=== PATIENT | female | born 1985 | race Caucasian/White ===

== ENCOUNTER 2018-03-06 16:27 | Emergency (ER) | payer OTHER ==
[2018-03-06 16:42] VITALS: RESP 18; TEMP 98.7
[2018-03-06] MEDS ORDERED: hydrALAZINE HCL 20 MG/ML 1 ML VIAL IVP STA (16:58)
--- NOTE | 2018-03-06 16:58 | ED ---
General Adult HPI - General Chief complaint: Recheck/Abnormal Lab/Rx Stated complaint: hypertension Time Seen by Provider: 03/06/18 16:35 Source: EMS, RN notes reviewed Mode of arrival: EMS Limitations: no limitations - History of Present Illness Initial comments: This is a 32-year-old female who presents emergency Department complaining that her blood pressures been elevated and she feels generally weak. Patient is in [facility] for alcoholism. Patient states she got there one week ago. Patient states she started BuSpar yesterday and has been on Ativan regularly. Patient states she also takes trazodone every night. Patient's current complaint is generalized weakness. Patient denies any headache patient denies any numbness or focal weakness. Patient denies any lightheadedness or dizziness. Patient denies chest pain palpitations difficulty breathing first breath per patient denies abdominal pain patient denies nausea vomiting diarrhea. Patient denies taking any other drugs in what were listed earlier. Patient denies fever chills or cough - Related Data Allergies Allergy/AdvReac Type Severity Reaction Status Date / Time No Known Allergies Allergy Verified 03/06/18 16:37 Review of Systems ROS Statement: Those systems with pertinent positive or pertinent negative responses have been documented in the HPI. ROS Other: All systems not noted in ROS Statement are negative. Past Medical History Past Medical History: Hypertension History of Any Multi-Drug Resistant Organisms: None Reported Past Surgical History: Section, Ear Surgery, Tonsillectomy Past Psychological History: Anxiety Smoking Status: Current every day smoker Past Alcohol Use History: None Reported Past Drug Use History: None Reported General Exam - General Exam Comments Initial Comments: GENERAL: Patient is well-developed and well-nourished. Patient is nontoxic and well- hydrated and is in no acute distress. ENT: Neck is soft and supple. No significant lymphadenopathy is noted. Oropharynx is clear. Moist mucous membranes. Neck has full range of motion without eliciting any pain. EYES: The sclera were anicteric and conjunctiva were pink and moist. Extraocular movements were intact and pupils were equal round and reactive to light. Eyelids were unremarkable. PULMONARY: Unlabored respirations. Good breath sounds bilaterally. No audible rales rhonchi or wheezing was noted. CARDIOVASCULAR: There is a regular rate and rhythm without any murmurs gallops or rubs. ABDOMEN: Soft and nontender with normal bowel sounds. No palpable organomegaly was noted. There is no palpable pulsatile mass. SKIN: Skin is clear with no lesions or rashes and otherwise unremarkable. NEUROLOGIC: Patient is alert and oriented x3. Cranial nerves II through XII are grossly intact. Motor and sensory are also intact. Normal speech, volume and content. Patient answers all questions accurately can move all 4 extremities but is very slow in responding but starts responding immediately MUSCULOSKELETAL: Normal extremities with adequate strength and full range of motion. No lower extremity swelling or edema. No calf tenderness. LYMPHATICS: No significant lymphadenopathy is noted PSYCHIATRIC: Normal psychiatric evaluation. Normal interpersonal interactions appears functionally intact in deals appropriately with others. No signs of depression. No signs of anxiety. Limitations: no limitations Course Vital Signs 03/06/18 03/06/18 03/06/18 16:37 17:12 17:41 Temperature 98.7 F Pulse Rate 84 Respiratory 18 Rate Blood Pressure 164/105 147/88 138/71 O2 Sat by Pulse 97 Oximetry 03/06/18 03/06/18 18:10 18:40 Temperature Pulse Rate 66 67 Respiratory Rate Blood Pressure 129/91 135/85 O2 Sat by Pulse Oximetry Medical Decision Making - Medical Decision Making EKG shows normal sinus rhythm at 80 bpm CA interval is 148 QRS 92 QT interval 376 QTC is 433. Patient's EKG shows no ST segment elevation or depression or T wave abnormalities are noted. I will back into the room to reevaluate the patient she was feeling completely at her baseline her blood pressure is 135/83. Patient denies any symptoms at this time. Patient does not know why she felt so tired earlier. Patient's blood pressure slowly came down on its own in the emergency department so we did not give the patient any medications for her blood pressure. - Lab Data Result diagrams: 03/06/18 17:09 03/06/18 17:09 Lab Results 03/06/18 03/06/18 03/06/18 Range/Units 17:09 17: 17:09 WBC 5.0 (3.8-10.6) k/uL RBC 4.08 (3.80-5.40) m/uL Hgb 12.7 (11.4-16.0) gm/dL Hct 38.6 (34.0-46.0) % MCV 94.8 (80.0-100.0) fL MCH 31.2 (25.0-35.0) pg MCHC 33.0 (31.0-37.0) g/dL RDW 15.2 (11.5-15.5) % Plt Count 204 (150-450) k/uL Neutrophils % 56 % Lymphocytes % 29 % Monocytes % 8 % Eosinophils % 4 % Basophils % 1 % Neutrophils # 2.8 (1.3-7.7) k/uL Lymphocytes # 1.5 (1.0-4.8) k/uL Monocytes # 0.4 (0-1.0) k/uL Eosinophils # 0.2 (0-0.7) k/uL Basophils # 0.1 (0-0.2) k/uL Sodium 141 (137-145) mmol/L Potassium 4.1 (3.5-5.1) mmol/L Chloride 105 (98-107) mmol/L Carbon Dioxide 23 (22-30) mmol/L Anion Gap 13 mmol/L BUN 15 (7-17) mg/dL Creatinine 0.78 (0.52-1.04) mg/dL Est GFR (CKD-EPI)AfAm >90 (>60 ml/min/1.73 sqM) Est GFR (CKD-EPI)NonAf >90 (>60 ml/min/1.73 sqM) Glucose 82 (74-99) mg/dL Calcium 9.5 (8.4-10.2) mg/dL Magnesium 2.0 (1.6-2.3) mg/dL Total Bilirubin 0.4 (0.2-1.3) mg/dL AST 43 H (14-36) U/L ALT 49 (9-52) U/L Alkaline Phosphatase 63 (38-126) U/L Total Creatine Kinase 51 (30-135) U/L CK-MB (CK-2) 0.4 (0.0-2.4) ng/mL CK-MB (CK-2) Rel Index 0.8 Troponin I <0.012 (0.000-0.034) ng/mL Total Protein 6.9 (6.3-8.2) g/dL Albumin 4.2 (3.5-5.0) g/dL Urine Opiates Screen (NotDetected) Ur Oxycodone Screen (NotDetected) Urine Methadone Screen (NotDetected) Ur Propoxyphene Screen (NotDetected) Ur Barbiturates Screen (NotDetected) U Tricyclic Antidepress (NotDetected) Ur Phencyclidine Scrn (NotDetected) Ur Amphetamines Screen (NotDetected) U Methamphetamines Scrn (NotDetected) U Benzodiazepines Scrn (NotDetected) Urine Cocaine Screen (NotDetected) U Marijuana (THC) Screen (NotDetected) 03/06/18 Range/Units 17:20 WBC (3.8-10.6) k/uL RBC (3.80-5.40) m/uL Hgb (11.4-16.0) gm/dL Hct (34.0-46.0) % MCV (80.0-100.0) fL MCH (25.0-35.0) pg MCHC (31.0-37.0) g/dL RDW (11.5-15.5) % Plt Count (150-450) k/uL Neutrophils % % Lymphocytes % % Monocytes % % Eosinophils % % Basophils % % Neutrophils # (1.3-7.7) k/uL Lymphocytes # (1.0-4.8) k/uL Monocytes # (0-1.0) k/uL Eosinophils # (0-0.7) k/uL Basophils # (0-0.2) k/uL Sodium (137-145) mmol/L Potassium (3.5-5.1) mmol/L Chloride (98-107) mmol/L Carbon Dioxide (22-30) mmol/L Anion Gap mmol/L BUN (7-17) mg/dL Creatinine (0.52-1.04) mg/dL Est GFR (CKD-EPI)AfAm (>60 ml/min/1.73 sqM) Est GFR (CKD-EPI)NonAf (>60 ml/min/1.73 sqM) Glucose (74-99) mg/dL Calcium (8.4-10.2) mg/dL Magnesium (1.6-2.3) mg/dL Total Bilirubin (0.2-1.3) mg/dL AST (14-36) U/L ALT (9-52) U/L Alkaline Phosphatase (38-126) U/L Total Creatine Kinase (30-135) U/L CK-MB (CK-2) (0.0-2.4) ng/mL CK-MB (CK-2) Rel Index Troponin I (0.000-0.034) ng/mL Total Protein (6.3-8.2) g/dL Albumin (3.5-5.0) g/dL Urine Opiates Screen Not Detected (NotDetected) Ur Oxycodone Screen Not Detected (NotDetected) Urine Methadone Screen Not Detected (NotDetected) Ur Propoxyphene Screen Not Detected (NotDetected) Ur Barbiturates Screen Not Detected (NotDetected) U Tricyclic Antidepress Not Detected (NotDetected) Ur Phencyclidine Scrn Not Detected (NotDetected) Ur Amphetamines Screen Not Detected (NotDetected) U Methamphetamines Scrn Not Detected (NotDetected) U Benzodiazepines Scrn Not Detected (NotDetected) Urine Cocaine Screen Not Detected (NotDetected) U Marijuana (THC) Screen Not Detected (NotDetected) Disposition Clinical Impression: Hypertension Disposition: HOME SELF-CARE Instructions: Hypertension (ED) Additional Instructions: Patient should return to the emergency department if there is any new or worsening symptoms. Is patient prescribed a controlled substance at d/c from ED?: No Referrals: None,Stated [Primary Care Provider] - 1-2 days Time of Disposition: 18:58
[2018-03-06 17:23] LABS: Basophils # (A) 0.1 k/uL (0-0.2); Basophils % (A) 1 %; Eosinophils # (A) 0.2 k/uL (0-0.7); Eosinophils % (A) 4 %; HCT 38.6 % (34.0-46.0); HGB 12.7 gm/dL (11.4-16.0); Lymphocytes # (A) 1.5 k/uL (1.0-4.8); Lymphocytes % (A) 29 %; MCH 31.2 pg (25.0-35.0); MCV 94.8 fL (80.0-100.0); Mean Platelet Volume 7.2; Monocytes # (A) 0.4 k/uL (0-1.0); Monocytes % (A) 8 %; Neutrophils # (A) 2.8 k/uL (1.3-7.7); Neutrophils % (A) 56 %; Platelet Count 204 k/uL (150-450); RBC 4.08 m/uL (3.80-5.40); RDW 15.2 % (11.5-15.5)
[2018-03-06 17:36] LABS: ALT 49 U/L (9-52); AST 43 U/L (14-36); Albumin 4.2 g/dL (3.5-5.0); Alkaline Phosphatase 63 U/L (38-126); Anion Gap 13 mmol/L; Blood Urea Nitrogen 15 mg/dL (7-17); Calcium 9.5 mg/dL (8.4-10.2); Carbon Dioxide 23 mmol/L (22-30); Chloride 105 mmol/L (98-107); Glucose 82 mg/dL (74-99); Potassium 4.1 mmol/L (3.5-5.1); Sodium 141 mmol/L (137-145); Total Bilirubin 0.4 mg/dL (0.2-1.3); Total Protein 6.9 g/dL (6.3-8.2)
[2018-03-06 17:45] LABS: Amphetamine Screen,Urine Not Detected (NotDetected); Barbiturate Screen,Urine Not Detected (NotDetected); Benzodiazepines Screen,Urine Not Detected (NotDetected); Cocaine Screen,Urine Not Detected (NotDetected); Methadone Screen, Urine Not Detected (NotDetected); Opiate Screen,Urine Not Detected (NotDetected); Oxycodone Screen, Urine Not Detected (NotDetected); Phencyclidine Screen,Urine Not Detected (NotDetected); Tricyclic Antidepressant,Urine Not Detected (NotDetected); Urn Cannabinoid Scrn Not Detected (NotDetected)
[2018-03-06 17:46] LABS: Creatine Kinase 51 U/L (30-135)
--- NOTE | 2018-03-06 17:59 | XR ---
EXAMINATION: XR chest 2V DATE AND TIME: 03/06/2018 5:28 PM ORDERING PROVIDER: Almas Mclean MD CLINICAL INDICATION: Chest Pain TECHNIQUE: PA and lateral COMPARISON: None. DESCRIPTION: The lungs are clear. The pleural spaces are negative. The cardiac silhouette is not enlarged. The mediastinal and pleural silhouettes are unremarkable. The skeletal structures are intact without focal findings. The soft tissues are unremarkable. IMPRESSION: NO ACUTE PROCESS.
[2018-03-06 18:00] LABS: Creatine Kinase MB 0.4 ng/mL (0.0-2.4); Troponin I <0.012 ng/mL (0.000-0.034)
[2018-03-06 18:44] VITALS: BP 135/85; PULSE 67
== END 2018-03-06 19:32 | disposition home or self-care (01) ==
LOC: EC 16:27
DX: I10 Essential (primary) hypertension (principal); R53.1 Weakness; F17.200 Nicotine dependence, unspecified, uncomplicated
CPT/HCPCS: 36415; 71046; 80053; 80306; 82550; 82553; 83735; 84484; 85025; 93005; 99284

== ENCOUNTER 2020-07-24 17:06 | Inpatient (IN) | payer OTHER ==
[2020-07-24] MEDS ORDERED: SODIUM CHLORIDE 0.9% 1,000 ML IV STA (17:19)
[2020-07-24] MEDS ORDERED: SODIUM CHLORIDE 0.9% 500 ML 500 ML IV STA (17:19)
--- NOTE | 2020-07-24 17:23 | ED ---
Seizure HPI - General Chief Complaint: Seizure Stated Complaint: Possible seizure Time Seen by Provider: 07/24/20 17:06 Source: patient, EMS, RN notes reviewed Mode of arrival: EMS Limitations: no limitations - History of Present Illness Initial Comments: This is a 35-year-old female who is now on day 8 of rehab for alcohol use she states she was drinking a fifth a half of vodka every day who apparently just prior to transport here by EMS had a seizure was tonic-clonic in nature lasting approximately 2 minutes. She was unresponsive afterwards but within 5 minutes she woke up when EMS arrived. She denies any head neck or back pain she does have some pain to the right lower anterior ribs and abdominal area. She states she's had it for a while. She has gone through DTs before but denies any knowledge of any prior seizure disorder. No recent trauma. No fevers chills nausea vomiting sweats. MD Complaint: seizure - Related Data Allergies Allergy/AdvReac Type Severity Reaction Status Date / Time No Known Allergies Allergy Verified 07/24/20 17:16 Review of Systems ROS Statement: Those systems with pertinent positive or pertinent negative responses have been documented in the HPI. ROS Other: All systems not noted in ROS Statement are negative. Past Medical History Past Medical History: Hypertension, Liver Disease Additional Past Medical History / Comment(s): Pancreatitis History of Any Multi-Drug Resistant Organisms: None Reported Past Surgical History: Section, Ear Surgery, Tonsillectomy Past Psychological History: Anxiety Smoking Status: Current every day smoker Past Alcohol Use History: Abuse, Heavy Past Drug Use History: None Reported General Exam - General Exam Comments Initial Comments: This is a well-developed sec appearing female who is awake alert oriented 3 Limitations: no limitations General appearance: alert, in no apparent distress Head exam: Present: atraumatic, normocephalic, normal inspection Eye exam: Present: normal appearance, PERRL, EOMI. Absent: scleral icterus, conjunctival injection, periorbital swelling ENT exam: Present: normal exam, mucous membranes moist Neck exam: Present: normal inspection, full ROM, other. Absent: tenderness, meningismus, lymphadenopathy Respiratory exam: Present: normal lung sounds bilaterally, chest wall tenderness (No stridor JVD or bruits over the left anterior inferior chest wall no step-off crepitation no bruising seen). Absent: respiratory distress, wheezes, rales, rhonchi, stridor Cardiovascular Exam: Present: regular rate, normal rhythm, normal heart sounds. Absent: systolic murmur, diastolic murmur, rubs, gallop, clicks GI/Abdominal exam: Present: soft, tenderness (Mild tenderness below the left costochondral margin no guarding rebound masses or bruits), normal bowel sounds. Absent: distended, guarding, rebound, rigid Extremities exam: Present: normal inspection, full ROM, normal capillary refill. Absent: tenderness, pedal edema, joint swelling, calf tenderness Back exam: Present: normal inspection Neurological exam: Present: alert, oriented X3, CN II-XII intact Psychiatric exam: Present: normal affect, normal mood Skin exam: Present: warm, dry, intact, normal color. Absent: rash Course Vital Signs 07/24/20 17:10 Temperature 98.1 F Pulse Rate 71 Respiratory 18 Rate Blood Pressure 135/98 O2 Sat by Pulse 98 Oximetry Medical Decision Making - Medical Decision Making Patient remains awake and alert. She had evidence of a seizure likely alcohol withdrawal though it is a week since he last had alcohol. She will be admitted the case was discussed with Dr. Vance - Lab Data Result diagrams: 07/24/20 17:39 07/24/20 17:39 Lab Results 07/24/20 07/24/20 Range/Units 17:39 17:39 WBC 4.5 (3.8-10.6) k/uL RBC 3.24 L (3.80-5.40) m/uL Hgb 11.9 (11.4-16.0) gm/dL Hct 35.4 (34.0-46.0) % MCV 109.2 H (80.0-100.0) fL MCH 36.7 H (25.0-35.0) pg MCHC 33.6 (31.0-37.0) g/dL RDW 13.7 (11.5-15.5) % Plt Count 187 (150-450) k/uL Neutrophils % 63 % Lymphocytes % 24 % Monocytes % 9 % Eosinophils % 2 % Basophils % 1 % Neutrophils # 2.8 (1.3-7.7) k/uL Lymphocytes # 1.1 (1.0-4.8) k/uL Monocytes # 0.4 (0-1.0) k/uL Eosinophils # 0.1 (0-0.7) k/uL Basophils # 0.0 (0-0.2) k/uL Macrocytosis Marked A Sodium 136 L (137-145) mmol/L Potassium 3.2 L (3.5-5.1) mmol/L Chloride 100 (98-107) mmol/L Carbon Dioxide 29 (22-30) mmol/L Anion Gap 7 mmol/L BUN 10 (7-17) mg/dL Creatinine 0.57 (0.52-1.04) mg/dL Est GFR (CKD-EPI)AfAm >90 (>60 ml/min/1.73 sqM) Est GFR (CKD-EPI)NonAf >90 (>60 ml/min/1.73 sqM) Glucose 113 H (74-99) mg/dL Calcium 9.8 (8.4-10.2) mg/dL Magnesium 1.8 (1.6-2.3) mg/dL Total Bilirubin 1.6 H (0.2-1.3) mg/dL AST 84 H (14-36) U/L ALT 43 H (4-34) U/L Alkaline Phosphatase 230 H (38-126) U/L Creatine Kinase 58 (30-135) U/L Total Protein 7.0 (6.3-8.2) g/dL Albumin 3.9 (3.5-5.0) g/dL Lipase 667 H (23-300) U/L Serum Alcohol <10 mg/dL - Radiology Data Radiology results: report reviewed (I did review the imaging and report no acute findings.), image reviewed Disposition Clinical Impression: New onset seizure, Alcoholism, Hypokalemia Disposition: ADMITTED IP TO THIS [facility] Condition: Fair Referrals: Alexa Morin MD [Primary Care Provider] - 1-2 days
[2020-07-24 17:48] LABS: Basophils % (A) 1 %; Eosinophils # (A) 0.1 k/uL (0-0.7); Eosinophils % (A) 2 %; HCT 35.4 % (34.0-46.0); HGB 11.9 gm/dL (11.4-16.0); Lymphocytes # (A) 1.1 k/uL (1.0-4.8); Lymphocytes % (A) 24 %; MCH 36.7 pg (25.0-35.0); MCHC 33.6 g/dL (31.0-37.0); MCV 109.2 fL (80.0-100.0); Macrocytosis Marked; Mean Platelet Volume 8.3; Monocytes # (A) 0.4 k/uL (0-1.0); Monocytes % (A) 9 %; Neutrophils # (A) 2.8 k/uL (1.3-7.7); Neutrophils % (A) 63 %; Platelet Count 187 k/uL (150-450); RBC 3.24 m/uL (3.80-5.40); RDW 13.7 % (11.5-15.5); WBC 4.5 k/uL (3.8-10.6)
[2020-07-24 17:57] LABS: ALT 43 U/L (4-34); AST 84 U/L (14-36); African American GFR (CKD) >90 (>60 ml/min/1.73 sqM); Albumin 3.9 g/dL (3.5-5.0); Alcohol <10 mg/dL; Alkaline Phosphatase 230 U/L (38-126); Anion Gap 7 mmol/L; Blood Urea Nitrogen 10 mg/dL (7-17); Calcium 9.8 mg/dL (8.4-10.2); Carbon Dioxide 29 mmol/L (22-30); Chloride 100 mmol/L (98-107); Creatine Kinase 58 U/L (30-135); Glucose 113 mg/dL (74-99); Magnesium 1.8 mg/dL (1.6-2.3); Non-African American GFR(CKD) >90 (>60 ml/min/1.73 sqM); Potassium 3.2 mmol/L (3.5-5.1); Sodium 136 mmol/L (137-145); Total Bilirubin 1.6 mg/dL (0.2-1.3)
--- NOTE | 2020-07-24 18:03 | CT ---
EXAMINATION TYPE: CT brain wo con DATE OF EXAM: 07/24/2020 COMPARISON: None HISTORY: Seizure activity. CT DLP: 1082.4 mGycm Automated exposure control for dose reduction was used. Images are obtained of the brain without contrast. Ventricles and sulci appear normal. There is no mass effect nor midline shift. There is no sign of in tracranial hemorrhage. The calvarium is intact. There is no evidence of cerebral edema. There is norm al aeration of the mastoid sinuses. IMPRESSION: Negative unenhanced head CT scan.
--- NOTE | 2020-07-24 18:15 | XR ---
EXAMINATION TYPE: XR ribs LT w pa chest xray DATE OF EXAM: 07/24/2020 COMPARISON: Chest x-ray 02/26/2018 HISTORY: Left rib pain TECHNIQUE: 5 views FINDINGS: Heart and mediastinum are normal. Lungs are clear of infiltrate. There is no pleural effusi on or pneumothorax. I see no evidence of a rib fracture. Left shoulder is intact. IMPRESSION: Normal chest. Normal left ribs. No change.
[2020-07-24] MEDS ORDERED: KETOROLAC 15 MG/ML 1 ML VIAL IVP STA (18:27)
[2020-07-24] MEDS ORDERED: NALOXONE 0.4 MG/ML 1 ML VIAL IV PRN (19:12)
[2020-07-24] MEDS ORDERED: THIAMINE 100 MG/ML 2 ML VIAL IM STA (19:17)
[2020-07-24] MEDS ORDERED: LORazepam 2 MG/ML INJ IV PRN ×2 (19:17)
[2020-07-24] MEDS: 0.9% NACL WITH KCL 20 MEQ/L 1,000 ML IV SCH (19:45)
[2020-07-24] MEDS: THIAMINE 100 MG TAB PO SCH (19:46)
[2020-07-24] MEDS: LORazepam 2 MG/ML INJ IV PRN ×2 (20:50→23:07)
[2020-07-25] MEDS: LORazepam 2 MG/ML INJ IV PRN (03:03)
[2020-07-25] MEDS: THIAMINE 100 MG TAB PO SCH ×2 (06:17→14:48)
[2020-07-25 08:07] VITALS: RESP 16
[2020-07-25 08:44] LABS: HCG,Qualitative Serum Not Detected
[2020-07-25 08:47] LABS: ALT 31 U/L (4-34); AST 61 U/L (14-36); African American GFR (CKD) >90 (>60 ml/min/1.73 sqM); Albumin 3.1 g/dL (3.5-5.0); Alkaline Phosphatase 171 U/L (38-126); Anion Gap 5 mmol/L; Blood Urea Nitrogen 6 mg/dL (7-17); Calcium 8.3 mg/dL (8.4-10.2); Carbon Dioxide 29 mmol/L (22-30); Chloride 103 mmol/L (98-107); Glucose 114 mg/dL (74-99); Non-African American GFR(CKD) >90 (>60 ml/min/1.73 sqM); Potassium 3.3 mmol/L (3.5-5.1); Sodium 137 mmol/L (137-145); Total Bilirubin 1.3 mg/dL (0.2-1.3); Total Protein 5.9 g/dL (6.3-8.2)
--- NOTE | 2020-07-25 10:12 | US ---
EXAMINATION TYPE: US carotid duplex BILAT DATE OF EXAM: 07/25/2020 COMPARISON: NONE CLINICAL HISTORY: New-onset seizure. EXAM MEASUREMENTS: RIGHT: Peak Systolic Velocity (PSV) cm/sec ----- Right CCA: 68.2 ----- Right ICA: 63.8 ----- Right ECA: 91.5 ICA/CCA ratio: 0.9 RIGHT: End Diastole cm/sec ----- Right CCA: 18.8 ----- Right ICA: 21.7 ----- Right ECA: 28.9 LEFT: Peak Systolic Velocity (PSV) cm/sec ----- Left CCA: 63.6 ----- Left ICA: 66.9 ----- Left ECA: 75.7 ICA/CCA ratio: 1.1 LEFT: End Diastole cm/sec ----- Left CCA: 19.7 ----- Left ICA: 37.3 ----- Left ECA: 20.8 VERTEBRALS (direction of flow): Right Vertebral: Antegrade Left Vertebral: Antegrade Rhythm: Normal Minimal amount of plaque visualized bilaterally. No elevated velocities, no significant stenosis. IMPRESSION: No hemodynamically significant stenosis bilaterally. Any stenosis that may be present is less than 50%. Criteria for Assigning % of Stenosis / Diameter reduction (Estimation based on the indirect measurements of the internal carotid artery velocities (ICA PSV). 1. Normal (no stenosis)=ICA PSV < 125 cm/s: ratio < 2.0: ICA EDV<40 cm/s. 2. Less than 50% stenosis=ICA PSV < 125 cm/s: ratio < 2.0: ICA EDV<40 cm/s. 3. 50 to 69% stenosis=ICA PSV of 125 to 230 cm/s: ration 2.0 ? 4.0: ICA EDV 40-100 cm/s. 4. Greater than 70% stenosis to near occlusion= ICA PSV > 230 cm/s: ratio > 4.0: ICA EDV > 100 cm/s. 5. Near occlusion= ICA PSV velocities may be low or undetectable: variable ratio and ICA EDV. 6. Total occlusion=unable to detect flow.
[2020-07-25] MEDS ORDERED: KETOROLAC 15 MG/ML 1 ML VIAL IVP PRN (12:36)
--- NOTE | 2020-07-25 12:39 | P.CNNES ---
History of Present Illness Consult date: 07/25/20 Requesting physician: Michoacano Fleming Reason for Consult: New onset seizure, history of alcoholism History of Present Illness: Patient is a 35-year-old female arrived to the hospital yesterday at 5 PM by ambulance after having a seizure at the rehab facility. Patient has long- standing history of heavy alcoholism as mentioned below. Patient went to alcohol rehab about 8 days ago. Patient states that yesterday she was walking in the hallway, when her whole body felt numb and she sat down and then she does not remember what happened and woke up in the ambulance. There was no tongue bite, or loss of control of urine. According to EMS report, when they arrived, patient was sitting in the hallway. Staff has mentioned that patient had a seizure, a full body shaking lasting for about 1-2 minutes. When EMS arrived patient is alert and oriented to person place time and a vent. Patient however does not remember that conversation. There is no history of seizures. Her last drink was reported about 8 days prior. She did not have any nausea vomiting shortness of breath and difficulty breathing. Her blood pressure at the scene was 134/72 pulse 80 respiration 18 and blood glucose 128. Patient was brought to the hospital. Vital signs on arrival was blood pressure 135/98, pulse rate [address] head is normal. Chest x-ray showed no acute process. EKG shows normal sinus rhythm. Nonspecific ST-T wave abnormality. Patient's blood test shows normal CBC with elevated MCV 109.2. Sodium 136, potassium 3.2, normal renal functions. AST is 84, ALT 43. CPK 58. Blood alcohol level was <10.0 Patient takes trazodone 150 mg at bedtime, BuSpar 10 mg 3 times a day, chlorpheniramine 4 mg every 4 hours when necessary and lisinopril. Patient states that she drinks a fifth to a fifth and a 1/2 of vodka per day for last 5 years. Prior to that she used to drink half to 1 pint of vodka for [facility] 5-10 years. Review of Systems Denies any chest pain shortness of breath wheezing or cough. Denies any double vision, loss of vision, hoarseness, sore throat or dysphagia. Patient has poor dentition. Denies any abdominal pain, nausea vomiting diarrhea. All other rev iew of systems unremarkable. Past Medical History Past Medical History: Hypertension, Liver Disease Additional Past Medical History / Comment(s): Pancreatitis History of Any Multi-Drug Resistant Organisms: None Reported Past Surgical History: Section, Ear Surgery, Tonsillectomy Past Psychological History: Anxiety Smoking Status: Current every day smoker Past Alcohol Use History: Abuse, Heavy Past Drug Use History: None Reported Medications and Allergies Home Medications Medication Instructions Recorded Confirmed Type Chlorpheniramine Maleate 4 mg PO Q4H PRN MDD 4 tab/24hr 07/24/20 07/24/20 History [Chlor-Trimeton] Hyoscyamine Sulfate [Levsin-Sl] 0.125 mg SL QID PRN 07/24/20 07/24/20 History Ondansetron HCl [Zofran] 8 mg PO Q6H PRN 07/24/20 07/24/20 History Trimethobenzamide [Tigan] 300 mg PO Q6H PRN 07/24/20 07/24/20 History Zofran 4mg/2ml Injection 1 dose IM Q6H PRN 07/24/20 07/24/20 History busPIRone HCl [Buspar] 10 mg PO TID PRN 07/24/20 07/24/20 History lisinopriL 20 mg PO DIRECTED 07/24/20 History traZODone HCL 150 mg PO HS 07/24/20 07/24/20 History Ibuprofen [Motrin] 600 mg PO Q6H PRN 3 Days #12 tab 07/25/20 Rx Lidocaine 5% Patch [Lidoderm 5% 1 patch TOPICAL DAILY #7 patch 07/25/20 Rx Patch] Pantoprazole [Protonix] 40 mg PO AC-BRKFST #10 tablet.dr 07/25/20 Rx Thiamine [Vitamin B-1] 100 mg PO BID-W/MEALS #30 tab 07/25/20 Rx Allergies Allergy/AdvReac Type Severity Reaction Status Date / Time No Known Allergies Allergy Verified 07/24/20 19:44 Physical Examination - Vital Signs Vital Signs: Vital Signs Temp Pulse Pulse Resp BP BP Pulse Ox 07/25/20 08:04 98.8 F 66 16 152/92 99 07/25/20 04:00 98.3 F 67 18 152/92 100 07/24/20 23:36 98.6 F 71 18 142/95 100 07/24/20 22:34 83 18 141/99 98 07/24/20 19:32 144/110 07/24/20 19:06 64 18 171/112 100 07/24/20 17:10 98.1 F 71 18 135/98 98 Intake and Output 07/24/20 07/25/20 07/25/20 22:59 06:59 14:59 Intake Total 450 450 280 Balance 450 450 280 Intake: Oral 450 450 280 Other: Voiding Method Toilet Toilet # Voids 1 Weight 59.874 kg 61.1 kg On examination patient is a young female, appears slightly older than her stated age. She is alert and awake fully oriented. Her speech and language functions are normal. Attention, concentration and fund of knowledge is adequate. On cranial nerve examination pupils are round and reactive to light, visual marquez are full on confrontation, extraocular muscles are intact with no nystagmus. Face is symmetric, tongue protrudes the midline. Palatal elevation sensation normal. Hearing and shoulder shrug normal. Patient has very poor dentition. Facial sensations normal. On muscle strength testing there is no pronator drift and the strength appears normal in the arms and legs reflexes are 1+ and plantars are downgoing. Sensory touch is equal. No ataxia for [id number] testing. Tone and bulk of muscles normal. On general examination, there is no carotid bruit, S1 and S2 audible, abdomen soft nontender, chest is clear. Results - Laboratory Findings CBC and BMP: 07/24/20 17:39 07/25/20 08:02 Abnormal Lab Findings: Abnormal Labs 07/24/20 07/24/20 07/25/20 17:39 17:39 08:02 RBC 3.24 L MCV 109.2 H MCH 36.7 H Macrocytosis Marked A Sodium 136 L Potassium 3.2 L 3.3 L BUN 6 L Glucose 113 H 114 H Calcium 8.3 L Total Bilirubin 1.6 H AST 84 H 61 H ALT 43 H Alkaline Phosphatase 230 H 171 H Total Protein 5.9 L Albumin 3.1 L Lipase 667 H Assessment and Plan Assessment: * New onset seizure, likely due to alcohol withdrawal. Patient has long- standing history of alcoholism, undergoing rehabilitation with last drink a days ago. * Chronic alcoholism * Macrocytosis due to above. Plan: * Patient's seizure is likely related to alcohol withdrawal. * EEG was performed today, and is normal. No epileptiform activity was seen. Slightly excessive low voltage fast frequency beta suggestive of medication effect. * No indication for antiepileptic medication, as the seizure was likely provoked due to alcohol withdrawal. * Patient was informed of [place] state law of no driving unless seizure free for 6 months, climbing ladders, operating dangerous machinery or unsupervised swimming. * Neurologically clear for discharge.
[2020-07-25] MEDS ORDERED: PANTOPRAZOLE 40 MG TABLET PO SCH (12:45)
[2020-07-25] MEDS ORDERED: LIDOCAINE 5% PATCH TOPICAL SCH (12:45)
[2020-07-25] MEDS ORDERED: ENOXAPARIN 40 MG/0.4 ML SYRINGE SQ SCH (12:45)
[2020-07-25 12:58] VITALS: BP 136/96; PULSE 67; TEMP 97.8
[2020-07-25] MEDS ORDERED: POTASSIUM CHLORIDE ER 20 MEQ TAB.ER PO STA (14:39)
--- NOTE | 2020-07-25 14:42 | P.HPIM ---
History of Present Illness Consider this note as combined H&P and discharge summary Diagnoses: Alcohol withdrawal seizure Alcohol abuse undergoing it looks at [facility]. No signs and symptoms of alcohol withdrawal delirium tremens left chest pain trauma with pain and tenderness. Rib x-rays show no fractures. Conservative management Nicotine dependence. She smokes about half pack per day, patient consult and she agrees to quit. She agrees to the nicotine patch Hypertension Anxiety, not an active issue Hospital course:. The patient is a pleasant 35 years old female with multiple medical problems including hypertension, alcohol abuse and cigarette smoker. Her PCP is documented Dr. Liu. She was at [facility] for the last 8-9 days for detox from her alcohol problem. Yesterday she was walking in the hallway when she collapsed and had a seizure that lasted for 2 minutes as she's been told, without urine or bowel incontinence and without tongue biting. Patient denies history of seizure or she's not on any antiseizure medication however she had local withdrawal seizures before. Currently patient is fully awake and oriented to time place and person, she looks, and understandable. Is any physical symptoms except for chest pain. Patient has left Lower chest pain and tenderness with increased with deep inspiration and coughing from her fall. Vitals looks stable. Labs looked unremarkable including CBC, her potassium is slightly low at 3.3 then replaced, liver enzymes slightly elevated improvement and coming back to normal gradually. HCG serum is negative. And symmetrical level less than 10. Chest x-ray showing no infiltrate no pleural effusion or pneumothorax. No evidence of rib fracture. Patient has been evaluated by neurologist who found her to have alcohol withdrawal seizure, no need for any antiseizure medication and he cleared her for discharge. Also informed her with imaging the low not to drive for 6 months or climb ladders or operating dangerous machinery or unsupervised cerumen Problems and management plan were discussed with the patient and he verbalized understanding and acceptance Patient was found stable and can be discharged home however he needs follow-up as an outpatient. Patient was instructed to follow up with PCP Dr. Liu within one week and patient agrees. Also patient agrees to go to [facility] today Gen: patient is a AAOx3, no distress CVS: S1-S2, RRR, no murmur Lungs: B/L CTA, no wheezing. Left lower lobe chest wall tenderness Abdomen: soft, no distention, no tenderness, positive bowel sounds Extremity: no leg edema or induration Time spent more than 35 minutes Past Medical History Past Medical History: Hypertension, Liver Disease Additional Past Medical History / Comment(s): Pancreatitis History of Any Multi-Drug Resistant Organisms: None Reported Past Surgical History: Section, Ear Surgery, Tonsillectomy Past Psychological History: Anxiety Smoking Status: Current every day smoker Past Alcohol Use History: Abuse, Heavy Past Drug Use History: None Reported Medications and Allergies Home Medications Medication Instructions Recorded Confirmed Type Chlorpheniramine Maleate 4 mg PO Q4H PRN MDD 4 tab/24hr 07/24/20 07/24/20 History [Chlor-Trimeton] Hyoscyamine Sulfate [Levsin-Sl] 0.125 mg SL QID PRN 07/24/20 07/24/20 History Ondansetron HCl [Zofran] 8 mg PO Q6H PRN 07/24/20 07/24/20 History Trimethobenzamide [Tigan] 300 mg PO Q6H PRN 07/24/20 07/24/20 History Zofran 4mg/2ml Injection 1 dose IM Q6H PRN 07/24/20 07/24/20 History busPIRone HCl [Buspar] 10 mg PO TID PRN 07/24/20 07/24/20 History lisinopriL 20 mg PO DIRECTED 07/24/20 History traZODone HCL 150 mg PO HS 07/24/20 07/24/20 History Ibuprofen [Motrin] 600 mg PO Q6H PRN 3 Days #12 tab 07/25/20 Rx Lidocaine 5% Patch [Lidoderm 5% 1 patch TOPICAL DAILY #7 patch 07/25/20 Rx Patch] Pantoprazole [Protonix] 40 mg PO AC-BRKFST #10 tablet. 07/25/20 Rx Thiamine [Vitamin B-1] 100 mg PO BID-W/MEALS #30 tab 07/25/20 Rx Allergies Allergy/AdvReac Type Severity Reaction Status Date / Time No Known Allergies Allergy Verified 07/24/20 19:44 Physical Exam Vitals: Vital Signs Temp Pulse Pulse Resp BP BP Pulse Ox 07/25/20 08:04 98.8 F 66 16 152/92 99 07/25/20 04:00 98.3 F 67 18 152/92 100 07/24/20 23:36 98.6 F 71 18 142/95 100 07/24/20 22:34 83 18 141/99 98 07/24/20 19:32 144/110 07/24/20 19:06 64 18 171/112 100 07/24/20 17:10 98.1 F 71 18 135/98 98 Intake and Output 07/24/20 07/25/20 07/25/20 22:59 06:59 14:59 Intake Total 450 450 880 Balance 450 450 880 Intake: Intake, IV Titration 600 Amount 0.9% NaCl with KCl 20 Meq 600 /l 1,000 ml @ 50 mls/hr IV .Q20H TRAVIS Rx#: [id number] Oral 450 450 280 Other: Voiding Method Toilet Toilet # Voids 1 Weight 59.874 kg 61.1 kg Results CBC & Chem 7: 07/24/20 17:39 07/25/20 08:02 Labs: Abnormal Lab Results - Last 24 Hours (Table) 07/24/20 07/24/20 07/25/20 Range/Units 17:39 17:39 08:02 RBC 3.24 L (3.80-5.40) m/uL MCV 109.2 H (80.0-100.0) fL MCH 36.7 H (25.0-35.0) pg Macrocytosis Marked A Sodium 136 L (137-145) mmol/L Potassium 3.2 L 3.3 L (3.5-5.1) mmol/L BUN 6 L (7-17) mg/dL Glucose 113 H 114 H (74-99) mg/dL Calcium 8.3 L (8.4-10.2) mg/dL Total Bilirubin 1.6 H (0.2-1.3) mg/dL AST 84 H 61 H (14-36) U/L ALT 43 H (4-34) U/L Alkaline Phosphatase 230 H 171 H (38-126) U/L Total Protein 5.9 L (6.3-8.2) g/dL Albumin 3.1 L (3.5-5.0) g/dL Lipase 667 H (23-300) U/L
--- NOTE | 2020-07-25 14:47 | EEG ---
ELECTROENCEPHALOGRAM REPORT DATE OF SERVICE: 07/25/2020. PREAMBLE: This is a 35-year-old female with new onset seizure. Patient has history of alcoholism. EEG FINDINGS: This is a 21 channel, routine EEG recording in a patient utilizing 10-20 international system with referential and bipolar montages. The background consists of well- developed, moderately well regulated, mixed frequencies of low-voltage, fast frequency beta, with some alpha activity. Background seems to be reactive to eye opening and closing. Continuous artifact was seen at O2 electrode. Photic stimulation was not performed. Hyperventilation was not done. Some drowsiness was seen with presence of bilaterally symmetric theta frequency rhythm. Deeper stages of sleep was not seen. No focal or generalized epileptiform activity was seen. IMPRESSION: Minimally abnormal EEG due to presence of excessive low-voltage, fast frequency beta activity, which is suggestive of medication effect. Otherwise, the EEG was normal with no focal slowing or any interictal epileptiform activity. MMNBAL / IJN: [id number] / JAMAAL
[2020-07-25] MEDS: 0.9% NACL WITH KCL 20 MEQ/L 1,000 ML IV SCH (14:49)
== END 2020-07-25 16:04 | DRG 897 ==
LOC: EC 17:06 → 3SCARD 19:16
PROVIDERS: ADMIT Internal Medicine; ATTEND Internal Medicine
DX: F10.239 Alcohol dependence with withdrawal, unspecified (principal); D75.89 Other specified diseases of blood and blood-forming organs; E87.6 Hypokalemia; F17.210 Nicotine dependence, cigarettes, uncomplicated; F41.9 Anxiety disorder, unspecified; I10 Essential (primary) hypertension; R56.9 Unspecified convulsions; Z79.899 Other long term (current) drug therapy; R07.89 Other chest pain; K08.89 Other specified disorders of teeth and supporting structures
CPT/HCPCS: 36415; 70450; 80053; 80320; 82550; 83690; 83735; 84703; 85025; 93005; 93880; 95816; 96361; 96365; 96366; 96372; 96375; 99285

== ENCOUNTER 2023-06-07 10:16 | Emergency (ER) | payer OTHER ==
[2023-06-07] MEDS ORDERED: SODIUM CHLORIDE 0.9% 2,000 ML IV ONE (10:36)
[2023-06-07 11:28] LABS: Anisocytosis Moderate; Basophils # (A) 0.1 k/uL (0-0.2); Basophils % (A) 1 %; Eosinophils # (A) 0.3 k/uL (0-0.7); Eosinophils % (A) 6 %; HCT 38.5 % (34.0-46.0); HGB 12.2 gm/dL (11.4-16.0); Hypochromasia Slight; Lymphocytes % (A) 38 %; MCH 27.2 pg (25.0-35.0); MCHC 31.7 g/dL (31.0-37.0); MCV 85.9 fL (80.0-100.0); Mean Platelet Volume 8.6; Monocytes # (A) 0.3 k/uL (0-1.0); Monocytes % (A) 5 %; Neutrophils # (A) 2.4 k/uL (1.3-7.7); Neutrophils % (A) 47 %; Platelet Count 213 k/uL (150-450); RBC 4.48 m/uL (3.80-5.40); RDW 20.5 % (11.5-15.5); WBC 5.1 k/uL (3.8-10.6)
[2023-06-07 11:42] LABS: ALT 117 U/L (4-34); AST 186 U/L (14-36); African American GFR (CKD) >90 (>60 ml/min/1.73 sqM); Albumin 4.5 g/dL (3.5-5.0); Alkaline Phosphatase 107 U/L (38-126); Blood Urea Nitrogen 7 mg/dL (7-17); Calcium 8.8 mg/dL (8.4-10.2); Carbon Dioxide 23 mmol/L (22-30); Glucose 68 mg/dL (74-99); Lipase 156 U/L (23-300); Non-African American GFR(CKD) >90 (>60 ml/min/1.73 sqM); Total Bilirubin 0.5 mg/dL (0.2-1.3); Total Protein 7.9 g/dL (6.3-8.2)
[2023-06-07 11:55] LABS: Anion Gap 13 mmol/L; Chloride 107 mmol/L (98-107); Sodium 143 mmol/L (137-145)
[2023-06-07 13:28] VITALS: PULSE 112
--- NOTE | 2023-06-07 13:30 | ED ---
Alcohol HPI - General Chief Complaint: Alcohol Stated Complaint: ETOH Time Seen by Provider: 06/07/23 10:18 Source: patient, EMS, RN notes reviewed Mode of arrival: EMS - History of Present Illness Initial Comments: 38-year-old female presents emergency Department from [facility] via EMS for alcohol intoxication. Patient had blood alcohol 225. They stated that she was too intoxicated. Patient states she wants to go back to rehab she is been trying to get sober. Patient states she drinks one to 2 fifths daily. Patient states she only drank 1/5 of alcohol today. - Related Data Home Medications Medication Instructions Recorded Confirmed Chlorpheniramine Maleate 4 mg PO Q4H PRN MDD 4 tab/24hr 07/24/20 07/24/20 [Chlor-Trimeton] Hyoscyamine Sulfate [Levsin-Sl] 0.125 mg SL QID PRN 07/24/20 07/24/20 Trimethobenzamide [Tigan] 300 mg PO Q6H PRN 07/24/20 07/24/20 Zofran 4mg/2ml Injection 1 dose IM Q6H PRN 07/24/20 07/24/20 busPIRone HCl [Buspar] 10 mg PO TID PRN 07/24/20 07/24/20 lisinopriL 20 mg PO DIRECTED 07/24/20 ondansetron HCL [Zofran] 8 mg PO Q6H PRN 07/24/20 07/24/20 traZODone HCL 150 mg PO HS 07/24/20 07/24/20 Previous Rx's Medication Instructions Recorded Ibuprofen [Motrin] 600 mg PO Q6H PRN 3 Days #12 tab 07/25/20 Lidocaine 5% Patch [Lidoderm 5% 1 patch TOPICAL DAILY #7 patch 07/25/20 Patch] Pantoprazole [Protonix] 40 mg PO AC-BRKFST #10 tablet. 07/25/20 Thiamine [Vitamin B-1] 100 mg PO BID-W/MEALS #30 tab 07/25/20 Allergies Allergy/AdvReac Type Severity Reaction Status Date / Time No Known Allergies Allergy Verified 07/24/20 19:44 Review of Systems ROS Statement: Those systems with pertinent positive or pertinent negative responses have been documented in the HPI. ROS Other: All systems not noted in ROS Statement are negative. Past Medical History Past Medical History: CVA/TIA, Hypertension, Liver Disease, Myocardial Infarction ([place]) Additional Past Medical History / Comment(s): Pancreatitis. History of Any Multi-Drug Resistant Organisms: None Reported Past Surgical History: Section, Ear Surgery, Tonsillectomy Additional Past Surgical History / Comment(s): Open heart surgery, valve repair, turmor replaced from heart Past Psychological History: Anxiety Smoking Status: Current every day smoker Past Alcohol Use History: Abuse, Heavy Past Drug Use History: None Reported General Exam Limitations: no limitations General appearance: alert, in no apparent distress Head exam: Present: atraumatic, normocephalic, normal inspection Eye exam: Present: normal appearance, PERRL, EOMI. Absent: scleral icterus, conjunctival injection, periorbital swelling ENT exam: Present: normal exam, normal oropharynx, mucous membranes moist Neck exam: Present: normal inspection, full ROM. Absent: tenderness, meningismus, lymphadenopathy Respiratory exam: Present: normal lung sounds bilaterally. Absent: respiratory distress, wheezes, rales, rhonchi, stridor Cardiovascular Exam: Present: regular rate, normal rhythm, normal heart sounds. Absent: systolic murmur, diastolic murmur, rubs, gallop, clicks GI/Abdominal exam: Present: soft, normal bowel sounds. Absent: distended, tenderness, guarding, rebound, rigid Neurological exam: Present: alert Skin exam: Present: warm, dry, intact, normal color. Absent: rash Course Vital Signs 06/07/23 06/07/23 10:17 13:26 Temperature 97.8 F Pulse Rate 111 H 112 H Respiratory 18 16 Rate Blood Pressure 118/94 O2 Sat by Pulse 97 97 Oximetry Medical Decision Making - Medical Decision Making Was pt. sent in by a medical professional or institution (, PA, BATTERY PLATE ASSEMBLER, urgent care, hospital, or jail...) When possible be specific @ -[facility] Did you speak to anyone other than the patient for history (EMS, parent, family, police, friend...)? What history was obtained from this source @ -No Did you review nursing and triage notes (agree or disagree)? Why? @ -I reviewed and agree with nursing and triage notes Were old charts reviewed (outside hosp., previous admission, EMS record, old EKG, old radiological studies, urgent care reports/EKG's, jail records)? Report findings @ -No old charts were reviewed Differential Diagnosis (chest pain, altered mental status, abdominal pain women, abdominal pain men, vaginal bleeding, weakness, fever, dyspnea, syncope, headache, dizziness, GI bleed, back pain, seizure, CVA, palpatations, mental health, musculoskeletal)? @ -Alcohol intoxication, alcohol abuse EKG interpreted by me (3pts min.). @ -As above X-rays interpreted by me (1pt min.). @ -None done CT interpreted by me (1pt min.). @ -None done U/S interpreted by me (1pt. min.). @ -None done What testing was considered but not performed or refused? (CT, X-rays, U/S, labs)? Why? @ -None What meds were considered but not given or refused? Why? @ -None Did you discuss the management of the patient with other professionals (professionals i.e. , PA, BATTERY PLATE ASSEMBLER, lab, RT, psych nurse, sexual assault social worker, financial economist, teacher, complaint evaluation officer, hospice case manager)? Give summary @ -No Was smoking cessation discussed for >3mins.? @ -No Was critical care preformed (if so, how long)? @ -No Were there social determinants of health that impacted care today? How? (Homelessness, low income, unemployed, alcoholism, drug addiction, transportation, low edu. Level, literacy, decrease access to med. care, retirement, rehab)? @ -No Was there de-escalation of care discussed even if they declined (Discuss DNR or withdrawal of care, Hospice)? DNR status @ -No What co-morbidities impacted this encounter? (DM, HTN, Smoking, COPD, CAD, Cancer, CVA, ARF, Chemo, Hep., AIDS, mental health diagnosis, sleep apnea, morbid obesity)? @ -Alcohol abuse Was patient admitted / discharged? Hospital course, mention meds given and route, prescriptions, significant lab abnormalities, going to OR and other pe rtinent info. @ -Discharged patient sent back to [facility] for alcohol rehab. Undiagnosed new problem with uncertain prognosis? @ -No Drug Therapy requiring intensive monitoring for toxicity (Heparin, Nitro, Insulin, Cardizem)? @ -No Were any procedures done? @ -No Diagnosis/symptom? @ -Alcohol intoxication Acute, or Chronic, or Acute on Chronic? @ -Acute Uncomplicated (without systemic symptoms) or Complicated (systemic symptoms)? @ -Uncomplicated Side effects of treatment? @ -No Exacerbation, Progression, or Severe Exacerbation? @ -No Poses a threat to life or bodily function? How? (Chest pain, [place], [place], pneumonia, PE, COPD, DKA, ARF, appy, cholecystitis, CVA, Diverticulitis, Homicidal, Suicidal, threat to staff... and all critical care pts) @ -No - Lab Data Result diagrams: 06/07/23 10:41 06/07/23 10:41 Lab Results 06/07/23 06/07/23 Range/Units 10:41 10:41 WBC 5.1 (3.8-10.6) k/uL RBC 4.48 (3.80-5.40) m/uL Hgb 12.2 (11.4-16.0) gm/dL Hct 38.5 (34.0-46.0) % MCV 85.9 (80.0-100.0) fL MCH 27.2 (25.0-35.0) pg MCHC 31.7 (31.0-37.0) g/dL RDW 20.5 H (11.5-15.5) % Plt Count 213 (150-450) k/uL MPV 8.6 Neutrophils % 47 % Lymphocytes % 38 % Monocytes % 5 % Eosinophils % 6 % Basophils % 1 % Neutrophils # 2.4 (1.3-7.7) k/uL Lymphocytes # 2.0 (1.0-4.8) k/uL Monocytes # 0.3 (0-1.0) k/uL Eosinophils # 0.3 (0-0.7) k/uL Basophils # 0.1 (0-0.2) k/uL Hypochromasia Slight Anisocytosis Moderate Sodium 143 (137-145) mmol/L Potassium 4.0 (3.5-5.1) mmol/L Chloride 107 (98-107) mmol/L Carbon Dioxide 23 (22-30) mmol/L Anion Gap 13 mmol/L BUN 7 (7-17) mg/dL Creatinine 0.58 (0.52-1.04) mg/dL Est GFR (CKD-EPI)AfAm >90 (>60 ml/min/1.73 sqM) Est GFR (CKD-EPI)NonAf >90 (>60 ml/min/1.73 sqM) Glucose 68 L (74-99) mg/dL Calcium 8.8 (8.4-10.2) mg/dL Magnesium 2.0 (1.6-2.3) mg/dL Total Bilirubin 0.5 (0.2-1.3) mg/dL AST 186 H (14-36) U/L ALT 117 H (4-34) U/L Alkaline Phosphatase 107 (38-126) U/L Total Protein 7.9 (6.3-8.2) g/dL Albumin 4.5 (3.5-5.0) g/dL Lipase 156 (23-300) U/L - EKG Data -: EKG Interpreted by Me EKG Comments: EKG performed at 10:41 sinus tachycardia rate of 112, MD 144 QRS 84 QT/QTC 349/416 Disposition Clinical Impression: Alcoholism, Alcoholic intoxication Disposition: HOME SELF-CARE Condition: Stable Instructions (If sedation given, give patient instructions): Alcohol Intoxication (ED) Additional Instructions: Please return to the Emergency Department if symptoms worsen or any other concerns. Is patient prescribed a controlled substance at d/c from ED?: No Referrals: Vida Zapata MD [Primary Care Provider] - 1-2 days Time of Disposition: 13:29
[2023-06-07 14:52] VITALS: BP 135/87; RESP 18; TEMP 97.3
== END 2023-06-07 14:15 | disposition home or self-care (01) ==
LOC: EC 10:16
DX: F10.229 Alcohol dependence with intoxication, unspecified (principal); I10 Essential (primary) hypertension; I25.2 Old myocardial infarction; F17.200 Nicotine dependence, unspecified, uncomplicated; Z86.59 Personal history of other mental and behavioral disorders; Z79.899 Other long term (current) drug therapy
CPT/HCPCS: 36415; 80053; 83690; 83735; 85025; 93005; 96361; 96374; 99284

== ENCOUNTER 2023-10-25 15:26 | Inpatient (IN) | payer OTHER ==
[2023-10-25] MEDS ORDERED: SODIUM CHLORIDE 0.9% 1,000 ML IV ONE ×2 (15:54→20:33)
[2023-10-25] MEDS ORDERED: SODIUM CHLORIDE 0.9% 500 ML 500 ML IV ONE (15:54)
--- NOTE | 2023-10-25 16:09 | ED ---
General Adult HPI - General Chief complaint: Alcohol Stated complaint: ETOH Time Seen by Provider: 10/25/23 15:35 Source: patient, EMS, RN notes reviewed, old records reviewed Mode of arrival: EMS Limitations: no limitations - History of Present Illness Initial comments: This is a 38-year-old female who presents emergency department from [facility]. They stated she was slurring her speech was not acting good and he wanted her evaluated here. Patient states she drank last night but hasn't drink today. Patient denies any drug use. Patient states she has a little bit of slurred speech at her baseline because she's had a stroke in the past. Patient states no worse than normal. Patient has no complaints other than she wants to go to [facility] - Related Data Home Medications Medication Instructions Recorded Confirmed busPIRone HCl [Buspar] 10 mg PO TID 07/24/20 10/25/23 Allergies Allergy/AdvReac Type Severity Reaction Status Date / Time No Known Allergies Allergy Verified 10/25/23 15:33 Review of Systems ROS Statement: Those systems with pertinent positive or pertinent negative responses have been documented in the HPI. ROS Other: All systems not noted in ROS Statement are negative. Past Medical History Past Medical History: CVA/TIA, Hypertension, Liver Disease, Myocardial Infarction ([place]) Additional Past Medical History / Comment(s): Pancreatitis. History of Any Multi-Drug Resistant Organisms: None Reported Past Surgical History: Section, Ear Surgery, Tonsillectomy Additional Past Surgical History / Comment(s): Open heart surgery, valve repair, turmor replaced from heart Past Psychological History: Anxiety Smoking Status: Current every day smoker Past Alcohol Use History: Abuse, Daily, Heavy Past Drug Use History: None Reported General Exam - General Exam Comments Initial Comments: GENERAL: Patient is well-developed and well-nourished. Patient is nontoxic and well- hydrated and is in no acute distress. Patient appears intoxicated ENT: Neck is soft and supple. No significant lymphadenopathy is noted. Oropharynx is clear. Moist mucous membranes. Neck has full range of motion without eliciting any pain. EYES: The sclera were anicteric and conjunctiva were pink and moist. Extraocular movements were intact and pupils were equal round and reactive to light. Eyelids were unremarkable. PULMONARY: Unlabored respirations. Good breath sounds bilaterally. No audible rales rhonchi or wheezing was noted. CARDIOVASCULAR: Patient is tachycardic at 110 bpm. ABDOMEN: Soft and nontender with normal bowel sounds. SKIN: Skin is clear with no lesions or rashes and otherwise unremarkable. NEUROLOGIC: Patient is alert and oriented x3. Cranial nerves II through XII are grossly intact. Motor and sensory are also intact. Normal speech, volume and content. Symmetrical smile. MUSCULOSKELETAL: Normal extremities with adequate strength and full range of motion. LYMPHATICS: No significant lymphadenopathy is noted PSYCHIATRIC: Normal psychiatric evaluation. Limitations: no limitations Course Vital Signs 10/25/23 15:31 Temperature 98 F Pulse Rate 106 H Respiratory 20 Rate Blood Pressure 111/67 O2 Sat by Pulse 99 Oximetry Medical Decision Making - Medical Decision Making EKG is interpreted by myself. EKG shows sinus tachycardia at 109 bpm OK i nterval is on a 47 QRSs 89 QT interval 348 QTC is 412 per patient's EKG shows no ST segment elevation or depression. Was pt. sent in by a medical professional or institution (, PA, MANAGER PATIENT, urgent care, hospital, or retirement...) When possible be specific @ -[facility] sent the patient in Did you speak to anyone other than the patient for history (EMS, parent, family, police, friend...)? What history was obtained from this source @ -No Did you review nursing and triage notes (agree or disagree)? Why? @ -I reviewed and agree with nursing and triage notes Were old charts reviewed (outside hosp., previous admission, EMS record, old EKG, old radiological studies, urgent care reports/EKG's, retirement records)? Report findings @ -No old charts were reviewed Differential Diagnosis (chest pain, altered mental status, abdominal pain women, abdominal pain men, vaginal bleeding, weakness, fever, dyspnea, syncope, headache, dizziness, GI bleed, back pain, seizure, CVA, palpatations, mental health, musculoskeletal)? @ -Alcohol intoxication, alcohol withdrawal, alcohol withdrawal seizure, this is not all inclusive list EKG interpreted by me (3pts min.). @ -As above X-rays interpreted by me (1pt min.). @ -None done CT interpreted by me (1pt min.). @ -None done U/S interpreted by me (1pt. min.). @ -None done What testing was considered but not performed or refused? (CT, X-rays, U/S, labs)? Why? @ -None What meds were considered but not given or refused? Why? @ -None Did you discuss the management of the patient with other professionals (professionals i.e. , PA, MANAGER PATIENT, lab, RT, psych nurse, social work msw, automotive detailer, teacher, public relations officer, shelter case manager)? Give summary @ -I spoke with Dr. Perez for alcohol intoxication will be hydrated and will be reevaluated in the morning. Ana he agreed to admit the patient admitted the patient wrote admitting orders Was smoking cessation discussed for >3mins.? @ -No Was critical care preformed (if so, how long)? @ -No Were there social determinants of health that impacted care today? How? (Homelessness, low income, unemployed, alcoholism, drug addiction, transpo rtation, low edu. Level, literacy, decrease access to med. care, [facility], rehab)? @ -No Was there de-escalation of care discussed even if they declined (Discuss DNR or withdrawal of care, Hospice)? DNR status @ -No What co-morbidities impacted this encounter? (DM, HTN, Smoking, COPD, CAD, Cancer, CVA, ARF, Chemo, Hep., AIDS, mental health diagnosis, sleep apnea, morbid obesity)? @ -None Was patient admitted / discharged? Hospital course, mention meds given and route, prescriptions, significant lab abnormalities, going to OR and other pertinent info. @ -Patient will be admitted to Dr. Perez. [facility] and did not want to admit the patient because she was not acting normal to them so we will evaluate the patient in the morning again and hydrate the patient overnight and is on a CIWY protocol Undiagnosed new problem with uncertain prognosis? @ -No Drug Therapy requiring intensive monitoring for toxicity (Heparin, Nitro, Insulin, Cardizem)? @ -No Were any procedures done? @ -No Diagnosis/symptom? @ -Alcohol intoxication Acute, or Chronic, or Acute on Chronic? @ -Acute Uncomplicated (without systemic symptoms) or Complicated (systemic symptoms)? @ -Complicated Side effects of treatment? @ -No Exacerbation, Progression, or Severe Exacerbation? @ -No Poses a threat to life or bodily function? How? (Chest pain, [place], [place], pneumonia, PE, COPD, DKA, ARF, appy, cholecystitis, CVA, Diverticulitis, Homicidal, Suicidal, threat to staff... and all critical care pts) @ -No - Lab Data Result diagrams: 10/25/23 17:08 10/25/23 17:08 Lab Results 10/25/23 10/25/23 Range/Units 17:08 17:08 WBC 8.1 (3.8-10.6) k/uL RBC 5.19 (3.80-5.40) m/uL Hgb 14.2 (11.4-16.0) gm/dL Hct 42.9 (34.0-46.0) % MCV 82.6 (80.0-100.0) fL MCH 27.4 (25.0-35.0) pg MCHC 33.2 (31.0-37.0) g/dL RDW 18.1 H (11.5-15.5) % Plt Count 158 (150-450) k/uL MPV 8.3 Neutrophils % 66 % Lymphocytes % 26 % Monocytes % 3 % Eosinophils % 3 % Basophils % 0 % Neutrophils # 5.3 (1.3-7.7) k/uL Lymphocytes # 2.1 (1.0-4.8) k/uL Monocytes # 0.2 (0-1.0) k/uL Eosinophils # 0.2 (0-0.7) k/uL Basophils # 0.0 (0-0.2) k/uL Anisocytosis Slight Microcytosis Slight Sodium 144 (137-145) mmol/L Potassium 4.0 (3.5-5.1) mmol/L Chloride 111 H (98-107) mmol/L Carbon Dioxide 20 L (22-30) mmol/L Anion Gap 13 mmol/L BUN 7 (7-17) mg/dL Creatinine 0.59 (0.52-1.04) mg/dL Est GFR (CKD-EPI)AfAm >90 (>60 ml/min/1.73 sqM) Est GFR (CKD-EPI)NonAf >90 (>60 ml/min/1.73 sqM) Glucose 91 (74-99) mg/dL Calcium 9.6 (8.4-10.2) mg/dL Magnesium 1.9 (1.6-2.3) mg/dL Total Bilirubin 0.6 (0.2-1.3) mg/dL AST 105 H (14-36) U/L ALT 67 H (4-34) U/L Alkaline Phosphatase 102 (38-126) U/L Total Protein 8.6 H (6.3-8.2) g/dL Albumin 4.7 (3.5-5.0) g/dL Serum Alcohol 225 H* mg/dL Disposition Clinical Impression: Alcoholic intoxication Disposition: ADMITTED IP TO THIS HOSP Referrals: Vida Zapata MD [Primary Care Provider] - 1-2 days Time of Disposition: 18:50
[2023-10-25 17:32] LABS: Anisocytosis Slight; Basophils % (A) 0 %; Eosinophils # (A) 0.2 k/uL (0-0.7); Eosinophils % (A) 3 %; HCT 42.9 % (34.0-46.0); HGB 14.2 gm/dL (11.4-16.0); Lymphocytes # (A) 2.1 k/uL (1.0-4.8); Lymphocytes % (A) 26 %; MCH 27.4 pg (25.0-35.0); MCHC 33.2 g/dL (31.0-37.0); MCV 82.6 fL (80.0-100.0); Mean Platelet Volume 8.3; Microcytosis Slight; Monocytes # (A) 0.2 k/uL (0-1.0); Monocytes % (A) 3 %; Neutrophils # (A) 5.3 k/uL (1.3-7.7); Neutrophils % (A) 66 %; Platelet Count 158 k/uL (150-450); RBC 5.19 m/uL (3.80-5.40); RDW 18.1 % (11.5-15.5); WBC 8.1 k/uL (3.8-10.6)
[2023-10-25 17:47] LABS: ALT 67 U/L (4-34); AST 105 U/L (14-36); African American GFR (CKD) >90 (>60 ml/min/1.73 sqM); Albumin 4.7 g/dL (3.5-5.0); Alkaline Phosphatase 102 U/L (38-126); Anion Gap 13 mmol/L; Blood Urea Nitrogen 7 mg/dL (7-17); Calcium 9.6 mg/dL (8.4-10.2); Carbon Dioxide 20 mmol/L (22-30); Chloride 111 mmol/L (98-107); Glucose 91 mg/dL (74-99); Magnesium 1.9 mg/dL (1.6-2.3); Non-African American GFR(CKD) >90 (>60 ml/min/1.73 sqM); Sodium 144 mmol/L (137-145); Total Bilirubin 0.6 mg/dL (0.2-1.3); Total Protein 8.6 g/dL (6.3-8.2)
[2023-10-25 17:58] LABS: Alcohol 225 mg/dL
[2023-10-25] MEDS ORDERED: THIAMINE 100 MG/ML 2 ML VIAL IM STA (18:54)
[2023-10-25] MEDS ORDERED: LORazepam 1 MG TAB PO PRN (18:54)
[2023-10-25] MEDS ORDERED: LORazepam 0.5 MG TAB PO PRN (18:54)
[2023-10-25] MEDS ORDERED: LORazepam 2 MG/ML INJ IV STA (21:57)
[2023-10-25] MEDS ORDERED: LORazepam 2 MG/ML INJ IM STA (22:25)
[2023-10-26] MEDS: LORazepam 1 MG TAB PO PRN ×4 (00:24→22:19)
[2023-10-26] MEDS: chlordiazePOXIDE 25 MG CAP PO SCH ×4 (02:23→21:47)
[2023-10-26] MEDS: LORazepam 2 MG/ML INJ IV PRN ×5 (02:23→16:49)
--- NOTE | 2023-10-26 02:43 | HP ---
HISTORY AND PHYSICAL HISTORY OF PRESENT ILLNESS: A 38-year-old female, presents to [facility] for alcohol withdrawal, recently quit drinking. She is going for alcohol withdrawal. Waiting to get psych consult, etc. She was found drinking some detergent. HOME MEDICINES: BuSpar 10 mg t.i.d. ALLERGIES: Negative. PAST MEDICAL HISTORY: CVA, TIA, hypertension, liver disease, lung consolidation. PAST SURGICAL HISTORY: , eye surgery, tonsillectomy, open-heart surgery, valve repair, tumor repair, anxiety. SOCIAL HISTORY: Current everyday smoker. Alcohol abuse daily. PHYSICAL EXAMINATION: VITAL SIGNS: Temperature is 98, pulse 106, respiratory rate 18 to 20, blood pressure 111/67, O2 of 99%. CARDIOVASCULAR: S1, S2. LUNGS: Transmitted upper sounds. GI: Soft. HEMATOLOGY: Negative Homans. PSYCH: Fair mood and affect. NEUROLOGIC: Alert and oriented x3. MUSCULOSKELETAL: Range of motion. LYMPH: No lymphadenopathy. PSYCH: Fair mood and affect. 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 We will get Psych to see her and set her a CIWA protocol. MMODL / IJN: [id number] /
[2023-10-26] MEDS: THIAMINE 100 MG TAB PO SCH (09:47)
[2023-10-27] MEDS: LORazepam 1 MG TAB PO PRN ×5 (04:34→16:35)
[2023-10-27] MEDS: THIAMINE 100 MG TAB PO SCH (08:36)
[2023-10-27] MEDS: chlordiazePOXIDE 25 MG CAP PO SCH ×2 (08:37→16:30)
[2023-10-27] MEDS ORDERED: NICOTINE 21MG/24HR PATCH TRANSDERM SCH (17:45)
[2023-10-27 18:25] VITALS: BP 123/87; PULSE 83; RESP 18; TEMP 97.3
== END 2023-10-27 18:18 | disposition home or self-care (01) | DRG 775 ==
LOC: EC 15:26 → 5NMEDONC 20:33 → 3SCARD 10-26 05:23 → 5NMEDONC 10-26 13:37
PROVIDERS: ADMIT Family Medicine; ATTEND Family Medicine
DX: F10.229 Alcohol dependence with intoxication, unspecified (principal); Z56.0 Unemployment, unspecified; F10.239 Alcohol dependence with withdrawal, unspecified; F17.200 Nicotine dependence, unspecified, uncomplicated; I10 Essential (primary) hypertension; I25.2 Old myocardial infarction; Z86.73 Personal history of transient ischemic attack (TIA), and cerebral infarction without residual deficits; R56.9 Unspecified convulsions; R00.0 Tachycardia, unspecified; T55.1X1A Toxic effect of detergents, accidental (unintentional), initial encounter; Y90.7 Blood alcohol level of 200-239 mg/100 ml
CPT/HCPCS: 36415; 80053; 80320; 83735; 85025; 93005; 96361; 96372; 96374; 96376; 99285

== ENCOUNTER 2023-11-18 15:48 | Emergency (ER) | payer OTHER ==
--- NOTE | 2023-11-18 16:42 | ED ---
General Adult HPI - General Chief complaint: Alcohol Stated complaint: etoh Time Seen by Provider: 11/18/23 15:50 Source: patient, EMS, RN notes reviewed, old records reviewed Mode of arrival: EMS Limitations: altered mental status - History of Present Illness Initial comments: 38-year-old female presenting with acute alcohol intoxication. Patient is p resenting from [facility] where she was attempting to begin rehabilitation. She was sent with elevated alcohol and clinical intoxication. Patient is able to answer questions but is significantly intoxicated upon arrival. - Related Data Home Medications Medication Instructions Recorded Confirmed busPIRone HCl [Buspar] 10 mg PO TID 07/24/20 11/18/23 Aspirin EC [Ecotrin Low Dose] 81 mg PO DAILY 10/25/23 11/18/23 Furosemide [Lasix] 20 mg PO BID PRN 10/25/23 11/18/23 Albuterol Inhaler [Ventolin Hfa 1 - 2 puff INHALATION RT-Q6H PRN 11/18/23 11/18/23 Inhaler] Atorvastatin [Lipitor] 40 mg PO DIRECTED 11/18/23 11/18/23 Escitalopram [Lexapro] 20 mg PO DAILY 11/18/23 11/18/23 Folic Acid 1 mg PO DIRECTED 11/18/23 11/18/23 Multivit-Min/Iron Fum/Folic AC 1 tab PO DIRECTED 11/18/23 11/18/23 [Thera-M Caplet] Ondansetron [Zofran] 4 mg PO Q8H PRN 11/18/23 11/18/23 Potassium Chloride ER [K-Dur 10] 10 meq PO DAILY PRN 11/18/23 11/18/23 cloNIDine HCL 0.1 mg PO DIRECTED PRN 11/18/23 11/18/23 hydrOXYzine pamoate [Vistaril] 50 mg PO DAILY PRN 11/18/23 11/18/23 traZODone HCL [Desyrel] 100 mg PO HS 11/18/23 11/18/23 Allergies Allergy/AdvReac Type Severity Reaction Status Date / Time No Known Allergies Allergy Verified 11/18/23 16:28 Review of Systems ROS Statement: Those systems with pertinent positive or pertinent negative responses have been documented in the HPI. ROS Other: All systems not noted in ROS Statement are negative. Past Medical History Past Medical History: CVA/TIA, Hypertension, Liver Disease, Myocardial Infarction ([place]) Additional Past Medical History / Comment(s): Pancreatitis. History of Any Multi-Drug Resistant Organisms: None Reported Past Surgical History: Section, Ear Surgery, Tonsillectomy Additional Past Surgical History / Comment(s): Open heart surgery, valve repair, turmor replaced from heart Past Psychological History: Anxiety Smoking Status: Current every day smoker Past Alcohol Use History: Abuse, Daily, Heavy Past Drug Use History: None Reported General Exam Limitations: altered mental status General appearance: alert, in no apparent distress, appears intoxicated Head exam: Present: atraumatic, normocephalic Eye exam: Present: normal appearance, PERRL ENT exam: Present: mucous membranes moist Neck exam: Present: normal inspection. Absent: tenderness, meningismus Respiratory exam: Present: normal lung sounds bilaterally. Absent: respiratory distress, wheezes Cardiovascular Exam: Present: regular rate, normal rhythm GI/Abdominal exam: Present: soft. Absent: distended, tenderness, guarding Neurological exam: Present: alert. Absent: motor sensory deficit Skin exam: Present: warm, dry, intact. Absent: cyanosis, diaphoretic Course Vital Signs 11/18/23 11/18/23 15:54 16:04 Temperature 97.5 F L Pulse Rate 120 H 114 H Respiratory 16 Rate Blood Pressure 114/67 O2 Sat by Pulse 95 99 Oximetry - Reevaluation(s) Reevaluation #1: 11/18/23 20:19 [facility] refuses admission stating that the patient requires 5 days of sobriety. Patient attempting to contact family members. Medical Decision Making - Medical Decision Making Was pt. sent in by a medical professional or institution (, PA, CLINICAL LABORATORY SCIENTIST, urgent care, hospital, or skilled nursing...) When possible be specific @ -No Did you speak to anyone other than the patient for history (EMS, parent, family, police, friend...)? What history was obtained from this source @ -No Did you review nursing and triage notes (agree or disagree)? Why? @ -I reviewed and agree with nursing and triage notes Were old charts reviewed (outside hosp., previous admission, EMS record, old EKG, old radiological studies, urgent care reports/EKG's, skilled nursing records)? Report findings @ -No old charts were reviewed Differential Diagnosis (chest pain, altered mental status, abdominal pain women, abdominal pain men, vaginal bleeding, weakness, fever, dyspnea, syncope, headache, dizziness, GI bleed, back pain, seizure, CVA, palpatations, mental health, musculoskeletal)? @Differential Mental Health Depression, anxiety, bipolar, psychosis, schizophrenia, borderline personality, situational depression, adjustment disorder, behavioral disorder, brain tumor, malingering, substance abuse, encephalopathy, medication reaction, dementia, hypothyroidism, degenerative neurologic disorder, lupus.... This is not meant to be all-inclusive list EKG interpreted by me (3pts min.). @ -As above X-rays interpreted by me (1pt min.). @ -None done CT interpreted by me (1pt min.). @ -None done U/S interpreted by me (1pt. min.). @ -None done What testing was considered but not performed or refused? (CT, X-rays, U/S, labs)? Why? @ -None What meds were considered but not given or refused? Why? @ -None Did you discuss the management of the patient with other professionals (professionals i.e. , PA, CLINICAL LABORATORY SCIENTIST, lab, RT, psych nurse, social service liaison, director and professor, teacher, health promotion officer, mental health case manager)? Give summary @ -No Was smoking cessation discussed for >3mins.? @ -No Was critical care preformed (if so, how long)? @ -No Were there social determinants of health that impacted care today? How? (Homelessness, low income, unemployed, alcoholism, drug addiction, transportation, low edu. Level, literacy, decrease access to med. care, detention, rehab)? @ -No Was there de-escalation of care discussed even if they declined (Discuss DNR or withdrawal of care, Hospice)? DNR status @ -No What co-morbidities impacted this encounter? (DM, HTN, Smoking, COPD, CAD, Cancer, CVA, ARF, Chemo, Hep., AIDS, mental health diagnosis, sleep apnea, morbid obesity)? @ -[Alcohol abuse. Was patient admitted / discharged? Hospital course, mention meds given and route, prescriptions, significant lab abnormalities, going to OR and other pertinent info. @ -Patient presenting with acute alcohol intoxication, alcohol level 275 in the emergency department. Patient has no physical complaints. She is not suicidal or homicidal. She is observed until clinically sober and discharged back to [facility]. Undiagnosed new problem with uncertain prognosis? @ -No Drug Therapy requiring intensive monitoring for toxicity (Heparin, Nitro, Insulin, Cardizem)? @ -No Were any procedures done? @ -No Diagnosis/symptom? @Alcohol intoxication Acute, or Chronic, or Acute on Chronic? @ -Acute on chronic Uncomplicated (without systemic symptoms) or Complicated (systemic symptoms)? @ -Default Side effects of treatment? @ -No Exacerbation, Progression, or Severe Exacerbation? @ -No Poses a threat to life or bodily function? How? (Chest pain, [place], [place], pneumonia, PE, COPD, DKA, ARF, appy, cholecystitis, CVA, Diverticulitis, Homicidal, Suicidal, threat to staff... and all critical care pts) @ -Low risk at this time - Lab Data Result diagrams: 11/18/23 16:22 11/18/23 16:22 Lab Results 11/18/23 11/18/23 Range/Units 16:22 16:22 WBC 9.2 (3.8-10.6) k/uL RBC 4.33 (3.80-5.40) m/uL Hgb 11.9 (11.4-16.0) gm/dL Hct 37.0 (34.0-46.0) % MCV 85.5 (80.0-100.0) fL MCH 27.4 (25.0-35.0) pg MCHC 32.1 (31.0-37.0) g/dL RDW 18.5 H (11.5-15.5) % Plt Count 279 (150-450) k/uL MPV 8.1 Neutrophils % 44 % Lymphocytes % 47 % Monocytes % 3 % Eosinophils % 3 % Basophils % 1 % Neutrophils # 4.0 (1.3-7.7) k/uL Lymphocytes # 4.4 (1.0-4.8) k/uL Monocytes # 0.3 (0-1.0) k/uL Eosinophils # 0.3 (0-0.7) k/uL Basophils # 0.1 (0-0.2) k/uL Anisocytosis Slight Sodium 145 (137-145) mmol/L Potassium 3.8 (3.5-5.1) mmol/L Chloride 111 H (98-107) mmol/L Carbon Dioxide 20 L (22-30) mmol/L Anion Gap 14 mmol/L BUN 11 (7-17) mg/dL Creatinine 0.70 (0.52-1.04) mg/dL Est GFR (CKD-EPI)AfAm >90 (>60 ml/min/1.73 sqM) Est GFR (CKD-EPI)NonAf >90 (>60 ml/min/1.73 sqM) Glucose 67 L (74-99) mg/dL Calcium 9.6 (8.4-10.2) mg/dL Magnesium 2.1 (1.6-2.3) mg/dL Total Bilirubin 0.4 (0.2-1.3) mg/dL AST 36 (14-36) U/L ALT 27 (4-34) U/L Alkaline Phosphatase 66 (38-126) U/L Total Protein 8.2 (6.3-8.2) g/dL Albumin 4.8 (3.5-5.0) g/dL Serum Alcohol 273 H* mg/dL Disposition Clinical Impression: Alcoholic intoxication Disposition: HOME SELF-CARE Condition: Fair Instructions (If sedation given, give patient instructions): Alcohol Intoxication (ED) Additional Instructions: Please follow-up with [facility] Is patient prescribed a controlled substance at d/c from ED?: No Referrals: None,Stated [Primary Care Provider] - 1-2 days
[2023-11-18 17:03] LABS: Anisocytosis Slight; Basophils # (A) 0.1 k/uL (0-0.2); Basophils % (A) 1 %; Eosinophils # (A) 0.3 k/uL (0-0.7); Eosinophils % (A) 3 %; HGB 11.9 gm/dL (11.4-16.0); Lymphocytes # (A) 4.4 k/uL (1.0-4.8); Lymphocytes % (A) 47 %; MCH 27.4 pg (25.0-35.0); MCHC 32.1 g/dL (31.0-37.0); MCV 85.5 fL (80.0-100.0); Mean Platelet Volume 8.1; Monocytes # (A) 0.3 k/uL (0-1.0); Monocytes % (A) 3 %; Neutrophils % (A) 44 %; Platelet Count 279 k/uL (150-450); RBC 4.33 m/uL (3.80-5.40); RDW 18.5 % (11.5-15.5); WBC 9.2 k/uL (3.8-10.6)
[2023-11-18] MEDS: SODIUM CHLORIDE 0.9% 1,000 ML IV ONE (17:03)
[2023-11-18 17:23] LABS: ALT 27 U/L (4-34); AST 36 U/L (14-36); African American GFR (CKD) >90 (>60 ml/min/1.73 sqM); Albumin 4.8 g/dL (3.5-5.0); Alkaline Phosphatase 66 U/L (38-126); Anion Gap 14 mmol/L; Blood Urea Nitrogen 11 mg/dL (7-17); Calcium 9.6 mg/dL (8.4-10.2); Carbon Dioxide 20 mmol/L (22-30); Chloride 111 mmol/L (98-107); Glucose 67 mg/dL (74-99); Magnesium 2.1 mg/dL (1.6-2.3); Non-African American GFR(CKD) >90 (>60 ml/min/1.73 sqM); Potassium 3.8 mmol/L (3.5-5.1); Sodium 145 mmol/L (137-145); Total Bilirubin 0.4 mg/dL (0.2-1.3); Total Protein 8.2 g/dL (6.3-8.2)
[2023-11-18 17:37] LABS: Alcohol 273 mg/dL
[2023-11-18] MEDS ORDERED: LORazepam 2 MG/ML INJ IV PRN ×2 (21:03)
[2023-11-18] MEDS: THIAMINE 100 MG/ML 2 ML VIAL IM STA (21:45)
[2023-11-18] MEDS: LORazepam 2 MG/ML INJ IV PRN (21:45)
[2023-11-19 02:25] VITALS: BP 100/62; PULSE 100; RESP 16; TEMP 98.7
[2023-11-19] MEDS ORDERED: THIAMINE 100 MG TAB PO SCH (09:00)
== END 2023-11-19 02:03 | disposition home or self-care (01) ==
LOC: EC 15:48
DX: F10.129 Alcohol abuse with intoxication, unspecified (principal); I10 Essential (primary) hypertension; I25.2 Old myocardial infarction; F41.9 Anxiety disorder, unspecified; F17.200 Nicotine dependence, unspecified, uncomplicated; Z79.899 Other long term (current) drug therapy; Z79.82 Long term (current) use of aspirin; Y90.8 Blood alcohol level of 240 mg/100 ml or more
CPT/HCPCS: 36415; 80053; 83735; 85025; 99285; 96374; 96372; G0480; J2060; J3411; 80320